=== PATIENT | male | born 1940 | race Caucasian/White ===

== ENCOUNTER 2024-03-28 05:16 | Day surgery (SDC) | payer OTHER, MEDICARE ==
[2024-03-26 13:42] VITALS: BMI 28.2
[2024-03-28] MEDS ORDERED: ACETAMINOPHEN 500 MG TABLET (FP) PO PRN (08:56)
[2024-03-28] MEDS ORDERED: DEXAMETHASONE SOD PHOSPHATE 10 MG/1 ML VIAL ONE (13:42)
[2024-03-28] MEDS ORDERED: LIDOCAINE HCL/PF 1% SDV 5ML VIAL ONE (13:42)
[2024-03-28 14:39] VITALS: BP 120/69; PULSE 81; RESP 18; TEMP 98.2
== END 2024-03-28 14:30 | disposition home or self-care (01) ==
LOC: JASU-SURG 05:16
PROVIDERS: ATTEND Pain Medicine Pain Medicine
PROC: 3E0R3BZ Introduction of Anesthetic Agent into Spinal Canal, Percutaneous Approach (ICD-10-PCS; 2024-03-28)
PROC: 3E0R33Z Introduction of Anti-inflammatory into Spinal Canal, Percutaneous Approach (ICD-10-PCS; principal; 2024-03-28 13:45)
DX: M48.061 Spinal stenosis, lumbar region without neurogenic claudication (principal); M54.16 Radiculopathy, lumbar region
CPT/HCPCS: 76000-TC-FY; J1100

== ENCOUNTER 2024-04-25 04:31 | Day surgery (SDC) | payer OTHER, MEDICARE ==
[2024-04-24 10:53] VITALS: BMI 29.1
[~2024-04-25 04:31] MED LIST: ACETAMINOPHEN 500 MG TABLET (FP) PO PRN
[2024-04-25] MEDS ORDERED: LIDOCAINE HCL/PF 1% SDV 5ML VIAL ONE (15:16)
[2024-04-25] MEDS: LIDOCAINE HCL 1% PRESERVATIVE FREE - 30ML VIAL IJ ONE ×2 (15:26→15:28)
[2024-04-25] MEDS: IOHEXOL 180 MG/1 ML ML IJ ONE ×2 (15:28→15:33)
[2024-04-25] MEDS: DEXAMETHASONE SOD PHOSPHATE 10 MG/1 ML VIAL IM ONE ×2 (15:36)
[2024-04-25 15:59] VITALS: BP 138/67; PULSE 68; RESP 20; TEMP 97.3
== END 2024-04-25 16:00 | disposition home or self-care (01) ==
LOC: JASU-SURG 04:31
PROVIDERS: ATTEND Pain Medicine Pain Medicine
PROC: 3E0R3BZ Introduction of Anesthetic Agent into Spinal Canal, Percutaneous Approach (ICD-10-PCS; 2024-04-25)
PROC: 3E0R33Z Introduction of Anti-inflammatory into Spinal Canal, Percutaneous Approach (ICD-10-PCS; principal; 2024-04-25 14:30)
DX: M48.061 Spinal stenosis, lumbar region without neurogenic claudication (principal); M54.16 Radiculopathy, lumbar region
CPT/HCPCS: 76000-TC-FY; J1100